=== PATIENT | male | born 1960 ===

== ENCOUNTER 2016-09-28 18:52 | Emergency (ER) | payer MEDICAID, OTHER ==
[2016-09-28 19:06] VITALS: BP 136/90; RESP 22; TEMP 98.1; O2SAT 97
--- NOTE | 2016-09-28 19:40 | ED PDOC ---
HPI: Chest Pain Time Seen by Provider: 09/28/16 19:27 Chief Complaint (Nursing): Chest Pain Chief Complaint (Provider): Chest Pain History Per: Patient History/Exam Limitations: intoxication (etoh) Onset/Duration Of Symptoms: Hrs (3) Current Symptoms Are (Timing): Better Quality: Burning Associated Symptoms: Dyspnea Modifying Factors: None Exacerbating Factors: None Alleviating Factors: None Additional History Per: Patient Additional Complaint(s): History is limited due to intoxicated state. 56 year old male with medical history of HTN, arrhythmia, etoh abuse presents to ED with chest pain. Patient states chest pain started 3 hrs ago that gradually got worse, substernal burning sensation in the middle of the chest. Patient states the pain has improved at this point. Pain was associated with dyspnea as well. Denies fever, chills, abdominal pain, n/v/d/c/brbpr/melena, jaw pain, headache, palpitations, cough, or back pain. No medications taken. Patient states history of arrhythmia with ablation? in the past. Takes meds daily though does not follow up with PCP, uses brothers meds (Metoprolol and Amlodipine). Patient admits on going on a etoh binge last night till 8 am, woke up, went to work this afternoon, left early and has been drinking margaritas for last 4 hrs. Admits he has an alcohol problem. No HI/SI. PMD: none Past Medical History Reviewed: Historical Data, Nursing Documentation, Vital Signs Vital Signs: Last Vital Signs Temp 98.1 F 09/28/16 19:00 Pulse 80 09/28/16 22:43 Resp 22 09/28/16 19:00 BP 136/90 09/28/16 19:00 Pulse Ox 97 09/28/16 22:43 - Medical History PMH: HTN Denies: Chronic Kidney Disease - Family History Family History: States: Unknown Family Hx - Living Arrangements Living Arrangements: With Family - Social History Current smoker - smoking cessation education provided: No Alcohol: > 2 Drinks/Day - Home Medications Home Medications: Ambulatory Orders Medication Instructions Recorded Metoprolol Tartrate [Lopressor] 50 mg PO BID #60 tablet 07/03/16 - Allergies Allergies/Adverse Reactions: Allergies Allergy/AdvReac Type Severity Reaction Status Date / Time No Known Allergies Allergy Verified 09/28/16 19:06 Review of Systems ROS Statement: Except As Marked, All Systems Reviewed And Found Negative ( except mentioned in HPI) Physical Exam - Reviewed Nursing Documentation Reviewed: Yes Vital Signs Reviewed: Yes - Physical Exam Appears: Positive for: Well, No Acute Distress Head Exam: Positive for: ATRAUMATIC, NORMAL INSPECTION, NORMOCEPHALIC Skin: Positive for: Normal Color, Warm, Dry Eye Exam: Positive for: Normal appearance, EOMI, PERRL ENT: Positive for: Normal ENT Inspection Neck: Positive for: Normal Cardiovascular/Chest: Positive for: Regular Rate, Rhythm Respiratory: Positive for: Normal Breath Sounds Gastrointestinal/Abdominal: Positive for: Normal Exam, Bowel Sounds (present), Soft. Negative for: Tenderness Extremity: Positive for: Normal ROM. Negative for: Tenderness, Pedal Edema Neurologic/Psych: Positive for: Alert, [employer] II-XII, Oriented, Mood/Affect (full range, tearful) - Laboratory Results Result Diagrams: 09/28/16 20:15 09/28/16 20:15 - ECG ECG: Positive for: Interpreted By Me, Viewed By Me ECG Rhythm: Positive for: Normal QRS, Normal ST Segment, Sinus Rhythm Interpretation Of ECG: NSR, 80bpm, no acute changes. Rate: 80 O2 Sat by Pulse Oximetry: 97 Pulse Ox Interpretation: Normal - Progress ED Course And Treament: Time: 1929 Initial impression: 56 year old male with history of HTN, EtOH abuse, arrhythmia with substernal, burning chest pain x 3 hrs. Plan: * CBC * CMP * TROPONIN * ALCOHOL SERUM * EKG * ASA 325 * PEPCID 20MG * YARD CONDUCTOR * REEVAL Time: 2200 Pain improved, labs unremarkable except for EtOH level of 175. Patient expressed increased stressors and sadness. Will have crisis evaluate patient. Time: 2319 Evaluated by crisis, no SI/HI. Dx alcohol-induced mood disorder. Will discharge patient home with follow up with PCP in 2-3 days. Return to ED for new/ worsening symptoms. Disposition - Clinical Impression Clinical Impression: Atypical chest pain, Alcohol-induced mood disorder - Patient ED Disposition Is Patient to be Admitted: No - Disposition Referrals: [facility] [Outside] Disposition: Routine/Home Disposition Time: 23:25 Condition: STABLE Instructions: Mood Disorders (ED), Noncardiac Chest Pain (ED) Print Language: TAJIK
[2016-09-28 19:51] VITALS: PULSE 80
[2016-09-28 20:28] LABS: BASO # 0.1 K/uL (0.0-0.2); EOS # 0.1 K/uL (0.0-0.7); EOS % 1.7 % (0.0-4.0); HEMATOCRIT 38.6 % (35.0-51.0); LYMPH # 1.7 K/uL (1.0-4.3); MEAN CELL VOLUME 96.7 fl (80.0-94.0); MEAN CORPUSCULAR HEMOGLOBIN 32.2 pg (27.0-31.0); MEAN CORPUSCULAR HGB CONC 33.3 g/dL (33.0-37.0); MEAN PLATELET VOLUME 8.2 fl (7.2-11.7); MONO # 0.9 K/uL (0.0-0.8); MONO % 13.6 % (0.0-10.0); NEUT # 3.8 K/uL (1.8-7.0); NEUT % 57.7 % (50.0-75.0); NRBC % 0.1 % (0.0-0.0); RED CELL DISTRIBUTION WIDTH 13.3 % (11.5-14.5); WHITE BLOOD COUNT 6.7 K/uL (4.8-10.8)
[2016-09-28 20:30] LABS: ALB/GLOB RATIO 1.2 (1.0-2.1); ALCOHOL SERUM 175 mg/dl (0-10); ALKALINE PHOSPHATASE 85 U/L (38-126); ALT/SGPT 54 U/L (21-72); AST/SGOT 72 U/L (17-59); BILIRUBIN,TOTAL 0.4 mg/dl (0.2-1.3); BLOOD UREA NITROGEN 16 mg/dl (9-20); CALCIUM 8.9 mg/dL (8.4-10.2); CARBON DIOXIDE 24 mmol/L (22-30); CHLORIDE 104 mmol/L (98-107); GFR AFRICAN-AMERICAN > 60; GLUCOSE,RANDOM 109 mg/dL (75-110); POTASSIUM 3.7 MMOL/L (3.6-5.0); SODIUM 144 mmol/l (132-148); TOTAL PROTEIN 8.6 G/DL (6.3-8.2)
[2016-09-28 21:40] LABS: PARTIAL THROMBOPLASTIN TIME 24.3 SECONDS (23.3-32.5)
== END 2016-09-28 23:32 | disposition home or self-care (01) ==
LOC: H.ER 18:52
DX: F10.10 Alcohol abuse, uncomplicated (principal); I10 Essential (primary) hypertension; Y90.6 Blood alcohol level of 120-199 mg/100 ml; F10.121 Alcohol abuse with intoxication delirium